=== PATIENT | male | born 1965 | race Caucasian/White ===

== ENCOUNTER → 2017-03-15 | Outpatient (CLI) | payer OTHER ==
--- NOTE | ~2017-03-15 | NDGEN ---
PATIENT'S NAME: DARIAN FRANCO [facility] AGE: 52 Y [address] ROOM: [place] [address] LOCATION: [facility] ADMIT DATE: 03/15/2017 Neurodiagnostics DISCHARGE DATE: FAMILY PHYSICIAN: JOSE FERRELL PA-C ATTENDING PHYSICIAN: NORMA SARAVIA DATE OF PROCEDURE: 03/15/2017 PROCEDURE PERFORMED: EMG and nerve conduction study of the bilateral upper extremities. INDICATIONS FOR PROCEDURE: The is a 52-year-old male patient who has had around 2 years of typical median neuropathy symptoms of carpal tunnel syndrome in both hands. This involves numbness into his fingers and difficulty in holding objects in his hands. He does not have any weakness into his upper arms, but he does have rotator cuff injury in his left shoulder. The patient had nerve conduction studies which included stimulating the median and ulnar motor and sensory nerves. There was prolonged motor onset latencies, worse at the right wrist compared to the left, but both onset latencies were extremely slow. The median onset latency at the right wrist was 8 milliseconds and in the left, it is 5.4 milliseconds. Amplitudes were 4.3 mV in the left and 3.1 mV in the right which is diminished for the patient's age. There is absent sensory nerve action potentials of both the right and the left median sensory nerves. The left ulnar motor and sensory nerve studies were all within normal limits. Next, a needle was placed into the abductor pollicis brevis in both hands. There was diminished recruitment of motor unit action potentials seen in the right thenar eminence, but not in the left. This is consistent with more serious median neuropathy of the right hand. IMPRESSION: There is definite evidence of bilateral median neuropathies at both wrists, worse in the right hand, however, definitely prolonged at both wrists. 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 PATIENT'S NAME: DARIAN FRANCO [facility] AGE: 52 Y [address] ROOM: [place] [address] LOCATION: [facility] ADMIT DATE: 03/15/2017 Neurodiagnostics DISCHARGE DATE: FAMILY PHYSICIAN: JOSE FERRELL PA-C ATTENDING PHYSICIAN: NORMA SARAVIA MD JRM/leigha /[id number] dtt: 04/03/17 0830 , NORMA ARNDT dtd: 03/15/17 1646
== END | disposition disaster alternative care site (69) ==
LOC: GNEU 14:11
DX: R29.898 Other symptoms and signs involving the musculoskeletal system (principal); G62.9 Polyneuropathy, unspecified